=== PATIENT | male | born 1945 | race Caucasian/White ===

== ENCOUNTER 2017-07-04 20:30 | Outpatient (CLI) | payer MEDICARE, OTHER | END 2017-07-04 20:31 | disposition home or self-care (01) | LOC: SLEEPLAB 20:30 | PROVIDERS: ATTEND Psychiatry & Neurology Neurology | DX: G47.33 Obstructive sleep apnea (adult) (pediatric) (principal); G47.9 Sleep disorder, unspecified; I25.10 Atherosclerotic heart disease of native coronary artery without angina pectoris; F41.8 Other specified anxiety disorders; I10 Essential (primary) hypertension; E11.69 Type 2 diabetes mellitus with other specified complication; R53.83 Other fatigue; R06.83 Snoring | CPT/HCPCS: 95811 ==

== ENCOUNTER 2017-08-22 11:47 | Outpatient (CLI) | payer MEDICARE, OTHER ==
--- NOTE | 2017-08-22 15:03 | PET ---
PET CT OF BRAIN: HISTORY: 72-year-old male with memory loss, migraine headaches. TECHNIQUE: PET CT of the brain was performed following the intravenous administration of 6.4 mCi F18-FDG in the right antecubital fossa. Imaging was performed after an uptake interval of 54 minutes. FINDINGS: There is decreased FDG uptake in the temporal lobes bilaterally. Metabolic activity in the remainder of the brain is otherwise within normal limits. IMPRESSION: Hypometabolic bilateral temporal lobes. POS: [facility]
== END 2017-08-22 11:48 | disposition home or self-care (01) ==
LOC: PET 11:47
PROVIDERS: ATTEND Psychiatry & Neurology Neurology
DX: G43.109 Migraine with aura, not intractable, without status migrainosus (principal); G93.89 Other specified disorders of brain
CPT/HCPCS: 78608; A9552

== ENCOUNTER 2018-03-31 11:56 | Outpatient (CLI) | payer MEDICARE, OTHER ==
[2018-03-31 12:17] VITALS: BMI 29.4
[2018-03-31 13:29] LABS: Hemoglobin 14.3 g/dL (14.0-18.0); Mean Corpuscular HGB CONC 33.4 g/dL (32.0-36.0); Mean Corpuscular Hemoglobin 33.5 pg (27.0-31.0); Mean Platelet Volume 7.4 fL (7.4-10.4); Platelet Count 177 thou/uL (130-400); RBC Distribution Width 11.7 % (11.5-14.5); Red Blood Cell (RBC) Count 4.28 mill/uL (4.70-6.10)
[2018-03-31 13:46] LABS: Anion Gap 13 mmol/L (10-20); BUN (Urea Nitrogen) 25 mg/dL (8.4-25.7); Calc. Creatinine Clearance 89 mL/min (70-130); Calcium 9.4 mg/dL (7.8-10.44); Carbon Dioxide 26 mmol/L (23-31); Chloride 104 mmol/L (98-107); Estimated GFR-MDRD 73; Glucose 103 mg/dL (83-110); Sodium 139 mmol/L (136-145)
--- NOTE | 2018-03-31 14:49 | RAD ---
CHEST 2 VIEWS: Date: 03/31/18 HISTORY: Preop. COMPARISON: None. FINDINGS: Lungs are clear. No pneumothorax or effusion. Cardiac silhouette and mediastinal contour within bsasam l limits. IMPRESSION: No acute intrathoracic abnormality. POS: [facility]
--- NOTE | 2018-04-06 14:28 | EKG ---
Test Reason : Blood Pressure : / mmHG Vent. Rate : 068 BPM Atrial Rate : 068 BPM P-R Int : 214 ms QRS Dur : 098 ms QT Int : 404 ms P-R-T Axes : 048 077 126 degrees QTc Int : 429 ms Sinus rhythm with 1st degree A-V block Abnormal ECG No previous ECGs available Confirmed by ANA ESPINOSA (2) on 04/06/2018 2:28:12 PM Referred By: HEDY Confirmed By:ANA ESPINOSA
== END 2018-03-31 11:57 | disposition home or self-care (01) ==
LOC: LABBT 11:56
PROVIDERS: ATTEND Urology
DX: Z01.818 Encounter for other preprocedural examination (principal); N40.0 Benign prostatic hyperplasia without lower urinary tract symptoms; R39.14 Feeling of incomplete bladder emptying; R68.82 Decreased libido; R35.1 Nocturia; R39.11 Hesitancy of micturition; R39.12 Poor urinary stream
CPT/HCPCS: 71046; 80048; 81001; 85027; 93005; 93010

== ENCOUNTER 2018-04-03 10:59 | Outpatient (CLI) | payer MEDICARE, OTHER ==
--- NOTE | 2018-04-03 13:16 | ULT ---
RENAL ULTRASOUND: DATE: 04/03/18. COMPARISON: None. HISTORY: Microhematuria. TECHNIQUE: Multiplanar, kessler scale sonographic imaging of the kidneys and urinary bladder obtained. FINDINGS: The right kidney measures 11.7 x 6.6 x 7.2 cm. Urinary bladder is grossly unremarkable, only partial ly distended. The left kidney measures 13.4 x 6.6 x 7.5 cm. There is a small cyst measuring 1.2 cm within the mid pole of the left kidney. No solid renal mass, hydronephrosis, or stone appreciated. IMPRESSION: 1. No hydronephrosis seen. 2. Check pyrotechnician note. POS: [facility]
== END 2018-04-03 11:00 | disposition home or self-care (01) ==
LOC: SCSULT 10:59
PROVIDERS: ATTEND Urology
DX: R31.21 Asymptomatic microscopic hematuria (principal)
CPT/HCPCS: 76770

== ENCOUNTER 2018-04-08 09:33 | Day surgery (SDC) | payer MEDICARE, OTHER ==
[2018-04-08] MEDS ORDERED: Levofloxacin 500 mg/D5W 100 ml Premix Bag ONE (11:00)
[2018-04-08] MEDS ORDERED: Dexamethasone 4 mg/ml Vial ONE (11:00)
[2018-04-08] MEDS ORDERED: Furosemide 20 MG/2 ML VIAL ONE (11:14)
[2018-04-08] MEDS ORDERED: B & O 30 MG SUPP ONE (11:14)
[2018-04-08] MEDS ORDERED: Fentanyl 100 MCG/2 ML VIAL ONE (11:19)
--- NOTE | 2018-04-08 15:17 | OP ---
DATE OF PROCEDURE: 04/08/2018 PREOPERATIVE DIAGNOSIS: Benign prostatic hyperplasia. POSTOPERATIVE DIAGNOSIS: Benign prostatic hyperplasia. PROCEDURE: GreenLight laser vaporization of the prostate with enucleation of the middle lobe, using 120,060 joules. COMPLICATIONS: No complications. SPECIMEN: Prostate. DRAIN REMAINING: Was a 20-Yoruba 2-way. ESTIMATED BLOOD LOSS: Minimal blood loss. INDICATIONS: The patient is a 73-year-old male, who is followed in the office for BPH and already on maximal meds with concerns about libido and erectile function, so we did not want to have him on fin asteride for a nursing home, so we opted for definitive therapy for this reason and his significantly lo w flow. TECHNIQUE: The patient was brought into the room by Anesthesia, laid on table in supine position. A fter receiving general anesthetic with his legs placed in lithotomy position, his perineum was preppe d and draped in sterile fashion. Using a 22.5-Yoruba cystoscope and 30-degree lens, urethra was ruiz ersed and the bladder inspected. The middle lobe extended more to the left, but was partially intrav esical and clearly obstructing. So, this was taken down and enucleated using the power level of 80. The ureteral orifices were noted early on and far away from the bladder neck and preserved throughou t the case. Once the middle lobe was taken down, the rest of the bulk of the proximal prostate was e nucleated in the middle in order to bring the prostatic urethra back down to the level of the bladder floor. Power level of 80 was also used at the bladder neck laterally and near the veru with a power level of 180 was used in the mid gland. Once adequate resection had been performed, the scope was r emoved and a great stream was noted. The scope was put back in, the bladder decompressed to check fo r hemostasis. Further contouring with a power level of 80 was done at the lateral portions of the bl adder neck to ensure this remained wide open and a small portion of the anterior portion of the prost ate was vaporized near the veru since that was hanging down. At this point, with a relatively decomp ressed bladder, hemostasis was ensured. So, the scope was removed a final time and a 20-Yoruba yadira ter placed to gravity. The patient tolerated the procedure well and was then awakened and transferre d to PACU in stable condition.
[2018-04-08] MEDS ORDERED: Ciprofloxacin 500 MG TAB PO SCH (21:00)
== END 2018-04-08 15:53 | disposition home or self-care (01) ==
LOC: SDC 09:33
PROVIDERS: ATTEND Urology
PROC: 0VT08ZZ Resection of Prostate, Via Natural or Artificial Opening Endoscopic (ICD-10-PCS; principal; 2018-04-08)
DX: N40.1 Benign prostatic hyperplasia with lower urinary tract symptoms (principal); R35.0 Frequency of micturition; R35.1 Nocturia; R39.12 Poor urinary stream; N52.9 Male erectile dysfunction, unspecified; E11.9 Type 2 diabetes mellitus without complications; I25.10 Atherosclerotic heart disease of native coronary artery without angina pectoris; K21.9 Gastro-esophageal reflux disease without esophagitis; E78.5 Hyperlipidemia, unspecified; F41.9 Anxiety disorder, unspecified; F31.9 Bipolar disorder, unspecified; G47.33 Obstructive sleep apnea (adult) (pediatric); Z87.891 Personal history of nicotine dependence; Z79.82 Long term (current) use of aspirin; Z79.84 Long term (current) use of oral hypoglycemic drugs; Z79.899 Other long term (current) drug therapy; Z88.5 Allergy status to narcotic agent; Z88.8 Allergy status to other drugs, medicaments and biological substances; Z91.040 Latex allergy status; Z95.5 Presence of coronary angioplasty implant and graft; Z95.1 Presence of aortocoronary bypass graft; Z99.89 Dependence on other enabling machines and devices
CPT/HCPCS: 88305; J1100; J1940; J1956; J3010